=== PATIENT | male | born 1955 | race Two or more races ===

== ENCOUNTER 2025-07-19 07:18 | Outpatient (CLI) | payer OTHER | END 2025-07-19 07:26 | disposition home or self-care (01) | LOC: NUCLEAR 07:18 | DX: G30.1 Alzheimer's disease with late onset (principal); G31.83 Neurocognitive disorder with Lewy bodies; F01.50 Vascular dementia, unspecified severity, without behavioral disturbance, psychotic disturbance, mood disturbance, and anxiety | CPT/HCPCS: 78814; A9552 ==